=== PATIENT | male | born 1990 | race Caucasian/White ===

== ENCOUNTER 2018-07-30 20:47 | Emergency (ER) | payer MEDICAID ==
[~2018-07-30] VITALS: Ht 175.3 cm; Wt 75.2 kg
[2018-07-30 20:50] VITALS: BP 148/90
[2018-07-30] MEDS ORDERED: LIDOCAINE-MPF 1%, 5ML ONE (21:29)
[2018-07-30] MEDS ORDERED: LIDOCAINE 2%, 20ML INFIL ONE (21:30)
== END 2018-07-30 22:22 | disposition home or self-care (01) ==
LOC: ED 21:07
DX: L03.113 Cellulitis of right upper limb (principal); F17.200 Nicotine dependence, unspecified, uncomplicated; F15.10 Other stimulant abuse, uncomplicated
CPT/HCPCS: 10060; 99283

== ENCOUNTER 2018-09-19 00:56 | Emergency (ER) | payer MEDICAID ==
[~2018-09-19] VITALS: Ht 177.8 cm; Wt 72.4 kg
[2018-09-19 00:58] VITALS: BP 142/86
[2018-09-19] MEDS ORDERED: LIDOCAINE-MPF 1%, 5ML INFIL ONE (02:00)
== END 2018-09-19 02:50 | disposition home or self-care (01) ==
LOC: ED 02:40
DX: L03.221 Cellulitis of neck (principal); L02.11 Cutaneous abscess of neck; Z72.9 Problem related to lifestyle, unspecified
CPT/HCPCS: 10060; 99283